=== PATIENT | male | born 1960 | race Two or more races ===

== ENCOUNTER 2018-09-08 08:26 | Day surgery (SDC) | payer OTHER ==
[~2018-09-08 08:26] MED LIST: COZAAR100 MG PO; FORTAMET1000 MG PO; LOTREL 5-40 MG1 EACH PO; NEXIUM40 M1 PO; OMEPRAZOLE40 MG PO; XANAX XR0.5 MG PO
[2018-09-08] MEDS ORDERED: POLY119PG PO (17:34)
[2018-09-08] MEDS ORDERED: PERCOCET 5-3251 EACH PO (17:34)
[2018-09-08] MEDS ORDERED: NEURONTIN600 MG PO (17:35)
[2018-09-08] MEDS ORDERED: SURFAK240 M1 PO (17:35)
== END 2018-09-08 18:45 | disposition home or self-care (01) ==
LOC: CIR.AMB 08:26
DX: K43.6 Other and unspecified ventral hernia with obstruction, without gangrene (principal); K42.0 Umbilical hernia with obstruction, without gangrene; M62.08 Separation of muscle (nontraumatic), other site

== ENCOUNTER 2020-08-21 17:17 | Emergency (ER) | payer OTHER ==
[~2020-08-21] VITALS: Ht 177.8 cm; Wt 87.1 kg
[~2020-08-21 17:17] MED LIST changes: +NEURONTIN600 MG PO; +PERCOCET 5-3251 EACH PO; +POLY119PG PO; +SURFAK240 M1 PO
== END 2020-08-21 21:57 | disposition home or self-care (01) ==
LOC: ER 17:17
DX: K44.9 Diaphragmatic hernia without obstruction or gangrene (principal); R10.13 Epigastric pain; Z03.818 Encounter for observation for suspected exposure to other biological agents ruled out